=== PATIENT | female | born 1995 | race Caucasian/White ===

== ENCOUNTER 2019-02-20 10:58 | Inpatient (IN) | payer MEDICAID ==
[~2019-02-20] VITALS: Ht 165.1 cm; Wt 99.8 kg
[~2019-02-20 10:58] MED LIST: FERR325E14 PO; PREN-385 PO
[2019-02-20] MEDS ORDERED: METHYLERGONOVINE 0.2 MG/ML AMP IM PRN ×2 (11:45→19:30)
[2019-02-20] MEDS ORDERED: OXYTOCIN 20 UNITS in LACTATED RINGERS 1,000 ML IV SCH (11:50)
[2019-02-20] MEDS ORDERED: fentaNYL 0.05 MG/ML VIAL IVP PRN (12:00)
[2019-02-20] MEDS ORDERED: HYDROmorphone 1 MG/ML AMP IVP PRN (12:00)
[2019-02-20] MEDS: LACTATED RINGERS 1,000 ML IV SCH ×2 (12:35→16:11)
[2019-02-20 12:47] LABS: EOSINOPHILS % (AUTO) 0.3 % (0.0-4.0)
[2019-02-20 12:52] LABS: BASOPHILS % (AUTO) 0.2 % (0.0-2.0); HEMOGLOBIN 13.9 g/dL (12.0-16.0); LYMPHOCYTES # (AUTO) 2.6 K/uL (2.5-16.5); LYMPHOCYTES % (AUTO) 22.5 % (20.5-51.1); MEAN CORPUSCULAR HEMOGLOBIN 31 pg (27-31); MEAN CORPUSCULAR HGB CONC 34 g/dL (33-37); MEAN CORPUSCULAR VOLUME 91.2 fL (80-94); MONOCYTES # (AUTO) 1.1 K/uL (0.8-1.0); MONOCYTES % (AUTO) 9.2 % (1.7-9.3); NEUTROPHILS # (AUTO) 7.8 K/uL (1.8-7.7); NEUTROPHILS % (AUTO) 67.8 % (42.2-75.2); PLATELET COUNT (AUTO) 101 K/uL (140-450); WHITE BLOOD COUNT (AUTO) 11.5 K/uL (4.8-10.8)
[2019-02-20 12:52] LABS: APPEARANCE,URINE CLOUDY (CLEAR); BILIRUBIN,URINE NEGATIVE (NEGATIVE); BLOOD, URINE 1+ (NEGATIVE); COLOR,URINE YELLOW (YELLOW); LEUKOCYTE ESTERASE ,URINE 1+ (NEGATIVE); NITRITE, URINE NEGATIVE (NEGATIVE); PH,URINE 6.5 (5.0-9.0); UGLUCOSE NEGATIVE (NEGATIVE)
[2019-02-20 13:10] LABS: RBC,URINE 0-5 /HPF (0-5); WBC,URINE 20-60 /HPF (0-5)
[2019-02-20] MEDS ORDERED: LIDOCAINE 1% 500 MG/50 ML VIAL INJ SCH (18:55)
[2019-02-20] MEDS ORDERED: LIDOCAINE 1% 500 MG/50 ML VIAL ONE (19:04)
[2019-02-20] MEDS ORDERED: METHYLERGONOVINE 0.2 MG/ML AMP ONE (19:28)
[2019-02-20] MEDS ORDERED: OXYTOCIN 10 UNITS/ML VIAL IM PRN (19:30)
[2019-02-20] MEDS ORDERED: HYDROcodone/APAP 5/325 MG 1 TAB TAB PO PRN (19:30)
[2019-02-20] MEDS ORDERED: oxyCODONE/APAP 5/325 MG 1 TAB TAB PO PRN (19:30)
[2019-02-20] MEDS ORDERED: TEMAZEPAM 15 MG CAP PO PRN (19:30)
[2019-02-20] MEDS ORDERED: MEASLES, MUMPS, AND RUBELLA 1 VIAL SQVAC PRN (19:30)
[2019-02-20] MEDS ORDERED: BENZOCAINE/MENTHOL 20%-0.5% 60 GM CAN TP PRN (19:30)
[2019-02-20] MEDS ORDERED: DOCUSATE SOD/SENNA 50/8.6 MG 1 TAB PO SCH (21:00)
[2019-02-21] MEDS: IBUPROFEN 800 MG TAB PO PRN ×2 (04:17→15:20)
[2019-02-21 07:14] LABS: HEMATOCRIT 36.7 % (36-48); HEMOGLOBIN 12.3 g/dL (12.0-16.0)
--- NOTE | 2019-02-21 08:15 | NUR ---
PATIENT HAS BEEN SCREENED AND CATEGORIZED LOW NUTRITION RISK. PATIENT WILL BE SEEN WITHIN 7 DAYS OF ADMISSION. 02/26/[address]
[2019-02-22] MEDS: IBUPROFEN 800 MG TAB PO PRN ×2 (07:01→20:07)
== END 2019-02-22 22:19 | disposition home or self-care (01) | DRG 560 ==
LOC: MLD 10:58 → MFCC 20:50
PROVIDERS: ADMIT Obstetrics & Gynecology; ATTEND Obstetrics & Gynecology
PROC: 10E0XZZ Delivery of Products of Conception, External Approach (ICD-10-PCS; principal; 2019-02-20)
PROC: 10907ZC Drainage of Amniotic Fluid, Therapeutic from Products of Conception, Via Natural or Artificial Opening (ICD-10-PCS; 2019-02-20)
PROC: 3E033VJ Introduction of Other Hormone into Peripheral Vein, Percutaneous Approach (ICD-10-PCS; 2019-02-20)
PROC: 3E0234Z Introduction of Serum, Toxoid and Vaccine into Muscle, Percutaneous Approach (ICD-10-PCS; 2019-02-20)
DX: O80 Encounter for full-term uncomplicated delivery (principal); Z23 Encounter for immunization; Z37.0 Single live birth; Z3A.38 38 weeks gestation of pregnancy
CPT/HCPCS: 36415; 51702; 59409; 81001; 85018; 85025; 86592; 86886; 86900; 86901; 87086; 90715; J2001; J2210; J2590; J7120

== ENCOUNTER 2021-02-18 09:37 | Emergency (ER) | payer MEDICAID, OTHER ==
[~2021-02-18] VITALS: Ht 162.6 cm; Wt 99.8 kg
[2021-02-18 10:07] VITALS: BP 110/69
--- NOTE | 2021-02-18 10:09 | NUR ---
PT TO WAIT IN TENT.
--- NOTE | 2021-02-18 10:35 | NUR ---
PT AMBULATED TO RESTROOM FOR UA COLLECTION.
--- NOTE | 2021-02-18 10:43 | NUR ---
PT TO WAIT IN LOBBY FOR .
[2021-02-18] MEDS ORDERED: ONDA8TAB87 PO (12:04)
[2021-02-18] MEDS ORDERED: NITR100C7 PO (12:04)
--- NOTE | 2021-02-18 12:08 | NUR ---
no nursing interventions given
[2021-02-18 12:09] VITALS: BP 110/69
--- NOTE | 2021-02-18 12:09 | NUR ---
Patient discharged with v/s stable. Written and verbal after care instructions given and explained. Patient alert, oriented and verbalized understanding of instructions. Ambulatory with steady gait. All questions addressed prior to discharge. ID band removed. Patient advised to follow up with PMD. Rx of zofran and macrobid given. Patient educated on indication of medication including possible reaction and side effects. Opportunity to ask questions provided and answered.
== END 2021-02-18 12:09 | disposition home or self-care (01) ==
LOC: MED 09:37
DX: O23.41 Unspecified infection of urinary tract in pregnancy, first trimester (principal); O21.8 Other vomiting complicating pregnancy; M54.9 Dorsalgia, unspecified; Z3A.01 Less than 8 weeks gestation of pregnancy; Z79.899 Other long term (current) drug therapy
CPT/HCPCS: 81002; 81025; 99283

== ENCOUNTER 2021-05-29 05:00 | Inpatient (IN) | payer MEDICAID, OTHER ==
[~2021-05-29] VITALS: Ht 165.1 cm; Wt 110.2 kg
[2021-05-29 05:00] VITALS: BP 113/56
[~2021-05-29 05:00] MED LIST changes: +NITR100C7 PO; +ONDA8TAB87 PO
[2021-05-29] MEDS ORDERED: NACL 0.9% 1,000 ML IV SCH (05:45)
== END 2021-05-29 11:58 | disposition home or self-care (01) | DRG 566 ==
LOC: MLD 05:00
PROVIDERS: ADMIT Obstetrics & Gynecology; ATTEND Obstetrics & Gynecology
DX: O23.02 Infections of kidney in pregnancy, second trimester (principal); Z3A.23 23 weeks gestation of pregnancy
CPT/HCPCS: J0690; J7060

== ENCOUNTER 2021-07-27 13:34 | Observation (INO) | payer MEDICAID ==
[~2021-07-27] VITALS: Ht 162.6 cm; Wt 107.0 kg
[~2021-07-27 13:34] MED LIST changes: -NITR100C7 PO
[2021-07-27] MEDS ORDERED: NOVR SUBQ (14:51)
== END 2021-07-27 16:05 | disposition home or self-care (01) ==
LOC: MLD 13:34
PROVIDERS: ADMIT Obstetrics & Gynecology; ATTEND Obstetrics & Gynecology
DX: O26.892 Other specified pregnancy related conditions, second trimester (principal); R11.0 Nausea; O26.899 Other specified pregnancy related conditions, unspecified trimester; M54.9 Dorsalgia, unspecified; Z3A.29 29 weeks gestation of pregnancy
CPT/HCPCS: 59025; G0378